=== PATIENT | male | born 1975 | race Caucasian/White ===

== ENCOUNTER 2018-04-09 12:24 | Emergency (ER) | payer MEDICAID ==
[2018-04-09 12:31] VITALS: BP 136/81
--- NOTE | 2018-04-09 13:14 | ED Physician Documentation ---
History of Present Illness - Stated complaint Stated Complaint: MALE - Chief complaint Chief Complaint: Abd Pain - History obtained from History obtained from: Patient - History of Present Illness Timing: How many weeks ago (several) Pain level max: 5 Pain level now: 4 - Additonal information Additional information: Patient is a 42-year-old male who presents to the emergency department multiple complaints. The first is right-sided abdominal pain that occurred after injuring himself approximately 2 weeks ago. States he felt a lump there which is now resolved and the pain is now improved. Occasionally he states he will move a certain way and feel the pain radiates down to his testicles. No pain with urination, ejaculation. No discharge. No testicular pain currently. No change in sexual partners. Patient also complains of right-sided knee pain, works as a [employer] developer and states that the knee does not always hurt but only when he moves in certain directions and twists. Currently not having the knee pain. Also complains of left upper dental pain with swelling for the past 2-3 days. No fevers. Worse with eating and drinking. Review of Systems Constitutional: denies: Fever, Chills GI: denies: Vomiting Skin: denies: Rash Musculoskeletal: denies: Neck pain, Back pain Neurologic: denies: Headache PD PAST MEDICAL HISTORY - Past Medical History Past Medical History: No - Past Surgical History Past Surgical History: No - Present Medications Home Medications: Ambulatory Orders Medication Instructions Recorded Confirmed Meloxicam [Mobic] 15 mg PO DAILY PRN #20 tablet 04/09/18 Penicillin V Potassium 500 mg PO Q6HR #40 tablet 04/09/18 - Allergies Allergies/Adverse Reactions: Allergies Allergy/AdvReac Type Severity Reaction Status Date / Time No Known Drug Allergies Allergy Verified 04/09/18 12:31 - Social History Does the pt smoke?: No Smoking Status: Never smoker Does the pt drink ETOH?: Yes Does the pt have substance abuse?: Yes Substance Use and Type: Marijuana - Immunizations Immunizations are current?: Yes Immunizations: TDAP current <10years PD ED PE NORMAL - Vitals Vital signs reviewed: Yes - General General: Alert and oriented X 3, No acute distress - HEENT HEENT: Moist mucous membranes - Neck Neck: Supple, no meningeal sign - Cardiac Cardiac: RRR - Respiratory Respiratory: No respiratory distress, Clear bilaterally - Abdomen Abdomen: Soft, Non tender, Non distended, Other (Normal abdominal exam lying and standing) - Male Male : Other (Normal external examination. No testicular masses or tenderness. No palpable inguinal hernias. No epididymal tenderness) - Derm Derm: Warm and dry - Extremities Extremities: Other (Right knee - Normal exam. No swelling. No tenderness. ACL, MCL, PCL, LCL are intact. No evidence of meniscal injury.) - Neuro Neuro: Alert and oriented X 3 - Psych Psych: Normal mood, Normal affect Results - Vitals Vitals: Vital Signs - 24 hr 04/09/18 12:27 Temperature 36.2 C L Heart Rate 92 Respiratory 18 Rate Blood Pressure 136/81 H O2 Saturation 100 Oxygen O2 Source Room air PD MEDICAL DECISION MAKING - ED course Complexity details: considered differential, d/w patient ED course: Patient is a 42-year-old male who presents to the emergency department with an apparent right-sided abdominal wall strain, likely hematoma from a week or so ago that is now resolved. No evidence of hernia. No femoral hernias. No inguinal hernias. Normal testicular exam. Also normal examination of the knee. He does have dental caries and will place him on antibiotics for this. We will have him follow-up with the dentist for further care. We will have him follow-up with his doctor for further care of the remainder of his issues. Patient counseled regarding signs and symptoms for which I believe and urgent re-evaluation would be necessary. Patient with good understanding of and agreement to plan and is comfortable going home at this time This document was made in part using voice recognition software. While efforts are made to proofread this document, sound alike and grammatical errors may occur. Departure - Departure Disposition: 01 Home, Self Care Clinical Impression: Dental caries Abdominal wall strain Qualifiers: Encounter type: initial encounter Qualified Code(s): S39.011A - Strain of muscle, fascia and tendon of abdomen, initial encounter Osteoarthritis of right knee Qualifiers: Osteoarthritis type: unspecified Qualified Code(s): M17.11 - Unilateral primary osteoarthritis, right knee Condition: Good Instructions: ED Cavity Dental, ED Strain Abdominal Muscle, ED Degenerative Joint Disease Follow-Up: [facility] [Provider Group] [facility] [Provider Group] [facility] [Provider Group] DANIA,DANNY L [Physician No Access] - Prescriptions: Penicillin V Potassium 500 mg PO Q6HR #40 tablet Meloxicam [Mobic] 15 mg PO DAILY PRN #20 tablet PRN Reason: pain Comments: Take all antibiotics until gone. Return if you worsen. You should follow-up w ith the dentist for further care of your teeth and your doctor for further care of your knees and abdomen. Discharge Date/Time: 04/09/18 13:32
== END 2018-04-09 13:32 | disposition home or self-care (01) ==
LOC: ED 12:24
DX: S39.011A Strain of muscle, fascia and tendon of abdomen, initial encounter (principal); K02.9 Dental caries, unspecified; M17.11 Unilateral primary osteoarthritis, right knee; X58.XXXA Exposure to other specified factors, initial encounter
CPT/HCPCS: 99283